=== PATIENT | female | born 1990 | race Caucasian/White ===

== ENCOUNTER 2016-10-10 17:48 | Emergency (ER) | payer BC ==
[~2016-10-10] VITALS: Ht 167.6 cm; Wt 123.0 kg
[2016-10-10 18:04] VITALS: TEMP 36.7; Ht 167.6 cm; Wt 123.0 kg
[2016-10-10] MEDS ORDERED: TRAMADOL HCL 50 MG TAB PO STA (18:24)
[2016-10-10] MEDS ORDERED: DIPH1TAB PO (18:24)
--- NOTE | 2016-10-10 18:30 | DIAGNOSTIC IMAGING REPORT ---
LEFT HAND MIN 3 VIEWS ROUTINE CLINICAL HISTORY: L Middle finger pain pain COMPARISON: None. DISCUSSION: The bones and joint spaces appear intact. There is no evidence of fracture, dislocation or bony disease. There is no evidence for soft tissue swelling. IMPRESSION: Negative study. Electronically signed by: Dank Sheets M.D. 10/10/2016 6:29 PM Dictated Date/Time: 10/10/2016 6:28 PM
[2016-10-10] MEDS ORDERED: TRAM-10 PO (18:50)
[2016-10-10 19:07] VITALS: BP 129/89; PULSE 92; O2SAT 99
--- NOTE | 2016-10-13 07:24 | EMERGENCY ROOM VISIT NOTE ---
ED Visit Note First contact with patient: 18:10 Chief Complaint: Left middle finger pain. History of Present Illness: Ms. Loya is a 26-year-old white female who ambulates into the ED accompanied by female friend complaining of pain over the DIP and distal flange of the left middle finger. Patient reports 4 days ago she was walking into her house after walking her dog. She opened the door and stopped momentarily and the dog raced into the house before her while she was still holding the door. She reports there was a twisting motion which injured her left middle finger. Currently she describes her pain as a sharp and throbbing sensation. She rates her discomfort 9/10. The pain is nonradiating. Pain worsens with flexion and extension of the DIP joint and palpation. She has not identified any alleviating factors related to the pain. She has not taken any medications for pain prior to arrival at the hospital. Associated with her pain she does report she has a paresthesia-like sensation throughout the distal finger. She denies any associated soft tissue injuries, other finger pain, other hand pain, previous significant injuries, fractures or surgeries to the left middle finger. Review of Systems: As noted above in history of present illness. Past Medical History: Patient denies. Current Medications: Benadryl. Allergies to Medications: Penicillin. Social History: Patient is currently employed; she feels safe in her home environment; she admits to tobacco use. Physical Examination: Vital Signs: Date Time Temp Pulse Resp B/P Pulse Ox O2 Delivery O2 Flow Rate FiO2 10/10/16 19:07 92 18 129/89 99 10/10/16 18:04 36.7 95 18 154/87 100 GENERAL: 26-year-old female in moderate distress due to pain, nontoxic-appearing , afebrile and hemodynamically stable. NEUROLOGICAL: Awake, alert and oriented to person, place and time. Answering questions appropriately and following commands. Normal gait. Good hand eye coordination. No focal motor or sensory deficits. SKIN: Warm, dry and pink. No soft tissue trauma noted. LEFT HAND: No gross bony deformities. Middle Finger: Once again no bony deformities. No tenderness over the third metacarpal, MCP joint, PIP joint and proximal phalange. Full range of motion of the MCP and PIP joint. She has difficulty extending and flexing her DIP joint due to pain. I do not appreciate any bony tenderness or crepitus. He was able to distinguish light sensations through all dermatomes of the finger. Cap refill is brisk. ED Course: Patient is assessed as noted above. Patient was given ice and 50 mg of Ultram by mouth for pain. Left Hand X-Rays: Were read by myself and the radiologist showing no acute fractures or dislocations. No evidence of soft tissue swelling or foreign bodies. Patient was placed in a long finger splint. Patient is a findings and instructed on treatment plan; she lives understanding and agreement with this plan. Clinical Impression: Left middle finger pain. Decision-Making: Initially my differential diagnosis I considered fracture, dislocation, tendon injury, contusion and other causes. Disposition: Patient discharged home in stable condition by female friends; prior to departure she was reassessed and subjectively reported she was feeling much better Plan: Comfort measures were discussed including rest, splint use, ice and alternating a prescription of Ultram and acetaminophen every 3 hours. Patient was encouraged to follow-up with orthopedics better in 7-10 days. Patient was encouraged to return to the ED uncontrolled pain, uncontrolled swelling, worsening numbness/tingling of the fingers or any new/concerning symptoms.
== END 2016-10-10 19:08 | disposition home or self-care (01) ==
LOC: C.EDB 17:49 → C.EDD 19:08
DX: M79.645 Pain in left finger(s) (principal); F17.200 Nicotine dependence, unspecified, uncomplicated

== ENCOUNTER 2017-05-18 18:53 | Emergency (ER) | payer BC, OTHER ==
[~2017-05-18 18:53] MED LIST: DIPH1TAB PO
[2017-05-18 19:05] VITALS: TEMP 36.9
[2017-05-18] MEDS ORDERED: KETOROLAC TROMETHAMINE 60 MG/2 ML VIAL IM STA (19:16)
--- NOTE | 2017-05-18 19:23 | EMERGENCY ROOM VISIT NOTE ---
ED Visit Note First contact with patient: 19:09 CHIEF COMPLAINT: Low back pain HISTORY OF PRESENT ILLNESS: This 27-year-old female patient presents to the emergency department, ambulatory, with her mother, complaining of pain in the low back which began 3 days ago at work. 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 She was seen at [facility] 2 days ago, one day after the incident, and was told that she has a pulled muscle. The patient states there were no x-rays or other imaging tests performed at that time. She was discharged on prednisone and Flexeril. She has been taking the prednisone as prescribed, but does not report any relief of her symptoms. The patient has not been taking any pain medication. The pain is constant and worse with movement. The patient notes the pain as "off the charts" and a 10/10. The patient has taken only prednisone and Flexeril without relief of the pain. The patient denies any loss of control of their bowel or bladder functions. There has been no leg numbness or weakness, and no change in sensation. No nausea or vomiting or abdominal pain. No chest pain or shortness of breath. The patient has not had prior back injuries. No dysuria or increased urinary frequency. REVIEW OF SYSTEMS: A 10 system review of systems was performed with positives and pertinent negatives listed in the history of present illness. All other systems were reviewed and are negative. ALLERGIES: Penicillin MEDICATIONS: Prednisone, Flexeril PMH: None SOCIAL HISTORY: The patient lives locally with family. She denies drug or alcohol use. She does admit to smoking 1 pack of cigarettes per day. PHYSICAL EXAM: VITALS: Vitals are noted on the nurse's note and reviewed by myself. Vital signs stable. GENERAL: This is a 27-year-old, obese white female, in no acute distress, nondiaphoretic, well-developed well-nourished. SKIN: The skin was without rashes, erythema, edema, or bruising. Capillary refill less than 2 seconds. NECK: Supple without nuchal rigidity. No cervical spine tenderness. No paraspinous muscle tenderness. HEART: Regular rate and rhythm without murmurs gallops or rubs. LUNGS: Clear to auscultation bilaterally without wheezes, rales or rhonchi. ABDOMEN: Positive bowel sounds x 4. Normal tympanic percussion. Soft, nontender, without masses or organomegaly. Perez sign negative. MUSCULOSKELETAL: No muscle atrophy, erythema, or edema noted of the back. There is no tenderness over the lumbar spinous processes. There is severe tenderness over the paraspinous muscles on the left. There is no tenderness over the thoracic spine or paraspinous muscles. There are muscle spasms present. The patient is slow to move around with maximum tenderness with positional changes. Negative straight leg raise test bilaterally. NEURO: Patient was alert and oriented to person place and time. Normal sensation to light and sharp touch. Deep tendon reflexes 2+ in the lower extremities. Dorsalis pedis pulse 2+ bilaterally. Strength 5/5 and equal in the bilateral lower extremities. RADIOLOGY: X-Ray L spine: LUMBAR SPINE 5 VIEWS CLINICAL HISTORY: Low back pain. FINDINGS: 5 views of the lumbar spine are obtained. No prior studies are available for comparison at the time of dictation. The skeletal structures are well mineralized. There is no radiographic evidence of fracture or malalignment. Vertebral body height and alignment are maintained. The transverse and spinous processes are intact. There is no evidence of spondylolysis. The intervertebral disc spaces are well-maintained. The visualized bony pelvis appears intact. A bone island is incidentally noted in the right femoral head. There is a nonobstructed abdominal bowel gas pattern. IMPRESSION: Unremarkable radiographic evaluation of the lumbosacral spine. Electronically signed by: Kalyan Kang M.D. 05/18/2017 8:14 PM Dictated Date/Time: 05/18/2017 8:13 PM EMERGENCY DEPARTMENT COURSE: The patient was seen and evaluated as above. She was given 60 mg Toradol IM and noted significant improvement in her symptoms. I discussed the results of the x-ray with the patient, and encouraged close follow-up with her Workmen's [employer]. providers. I did offer the patient another course of prednisone with a higher dose, but she declines in favor of naproxen instead. The patient was given a prescription for naproxen to the pharmacy and advised to take her muscle relaxer she was given from urgent care. Discharge instructions were reviewed and the patient was discharged home in good condition. DIFFERENTIAL DIAGNOSIS: Lumbar strain, fracture, cauda equina syndrome, disc protrusion or herniation, malignancy, and others DIAGNOSIS: Lumbar strain Current/Historical Medications Scheduled Prednisone (Prednisone), 10 MG PO taper ud Scheduled PRN Cyclobenzaprine Hcl (Flexeril), 10 MG PO TID PRN for Muscle Spasms Allergies Coded Allergies: Penicillins (Unverified Allergy, Severe, HIVES, 10/10/16) Vital Signs Date Time Temp Pulse Resp B/P (MAP) Pulse Ox O2 Delivery O2 Flow Rate FiO2 05/18/17 20:48 76 18 122/71 97 05/18/17 20:38 76 18 122/71 97 Room Air 05/18/17 19:05 36.9 89 18 140/78 98 Room Air Medications Administered Medications (Trade) Dose Ordered Sig/José Route Start Time Stop Time Status Last Admin Dose Admin Ketorolac Tromethamine (Toradol Inj) 60 mg NOW STAT IM 05/18/17 19:16 05/18/17 19:17 DC 05/18/17 19:29 60 MG Departure Information Impression Primary Impression: Strain of lumbar region Dispostion Home / Self-Care Condition GOOD Referrals No Doctor, Assigned (PCP) Patient Instructions ED Back Spasm No Trauma Td, ED Low Back Pain Injury, [facility] Additional Instructions You have been treated in the Emergency Department for Back Pain. You have been prescribed Flexeril (cyclobenzaprine) by the urgent care. You may use this medication up to 3 times daily. Do NOT exceed 30 mg (6 tabs) per day. Take your first dose at bedtime as it can make you drowsy. Always take all medications as prescribed. For pain control, you can use the following [id number] medicines (if >12 yo): Naproxen may be used for fever or pain. Use 500mg every 12 hours as needed. Take with food. Avoid using more than 1000mg in a 24 hour period. Do not use 1000mg per day for more than three consecutive days without physician direction. Prolonged inappropriate use can lead to stomach upset or ulcers. (AND/OR) Acetaminophen(Tylenol) may be used for fever or pain. Use 1000mg every six hours as needed. Avoid using more than 3000mg in a 24 hour period. If this is an acute injury, ice can be applied to the area of pain for the first 3 days to help decrease pain and inflammation. After the first 3 days, a heating pad can be used over the area for continued soothing relief. You should schedule a follow-up appointment in 2-3 days with your Primary Care Provider for further evaluation and treatment of your back pain. Return to the Emergency Department if your current symptoms worsen despite treatment course outlined above, or if you develop any of the following symptoms : intractable pain despite aforementioned treatment course, loss of control of your bowel or bladder, numbness or tingling in your groin, or development of a fever. Work Instructions Return To Work: 5 days Problem Qualifiers Primary Impression: Strain of lumbar region Encounter type: initial encounter Qualified Codes: S39.012A - Strain of muscle, fascia and tendon of lower back, initial encounter
--- NOTE | 2017-05-18 20:15 | DIAGNOSTIC IMAGING REPORT ---
LUMBAR SPINE 5 VIEWS CLINICAL HISTORY: Low back pain. FINDINGS: 5 views of the lumbar spine are obtained. No prior studies are available for comparison at the time of dictation. The skeletal structures are well mineralized. There is no radiographic evidence of fracture or malalignment. Vertebral body height and alignment are maintained. The transverse and spinous processes are intact. There is no evidence of spondylolysis. The intervertebral disc spaces are well-maintained. The visualized bony pelvis appears intact. A bone island is incidentally noted in the right femoral head. There is a nonobstructed abdominal bowel gas pattern. IMPRESSION: Unremarkable radiographic evaluation of the lumbosacral spine. Electronically signed by: Kalyan Kang M.D. 05/18/2017 8:14 PM Dictated Date/Time: 05/18/2017 8:13 PM
[2017-05-18] MEDS ORDERED: NAPR-1169 PO (20:27)
[2017-05-18] MEDS ORDERED: CYCL10TA6 PO (20:32)
[2017-05-18] MEDS ORDERED: PRED10TA PO (20:32)
[2017-05-18 20:48] VITALS: BP 122/71; PULSE 76; O2SAT 97
== END 2017-05-18 20:48 | disposition home or self-care (01) ==
LOC: C.EDB 18:57 → C.EDD 20:48
DX: S39.012A Strain of muscle, fascia and tendon of lower back, initial encounter (principal); X58.XXXA Exposure to other specified factors, initial encounter

== ENCOUNTER 2018-10-21 09:05 | Inpatient (IN) ==
[2018-10-21] MEDS ORDERED: LACTATED RINGER'S 1,000 ML IV PRN ×2 (10:20→16:56)
[2018-10-21] MEDS ORDERED: OXYTOCIN 30 UNITS/500 ML BAG IV PRN (10:20)
[2018-10-21 10:55] LABS: Hematocrit (blood only) 31.1 % (37-47); Hemoglobin 10.6 g/dL (12.0-16.0); Mean Corpuscular Volume 88.4 fL (80-100); Mean Platelet Volume 9.9 fL (7.4-10.4); Platelet Count 185 K/uL (130-400); RDW Coefficient of Variation 14.4 % (11.5-14.5); RDW Standard Deviation 46.6 fL (36.4-46.3); Red Blood Count 3.52 M/uL (4.2-5.4); White Blood Count 10.97 K/uL (4.8-10.8)
[2018-10-21 10:57] LABS: Mean Corpuscular Hgb Conc 34.1 g/dL (32-36)
[2018-10-21] MEDS ORDERED: DINOPROSTONE 10 MG INSERT PV ONE (11:00)
--- NOTE | 2018-10-21 11:19 | Obstetrical Progress Note ---
Date of Service October 21, 2018 Subjective Admit Note 28 F P0000 at 39.4 weeks admitted for induction of labor for Class 3 obesity. GBS is negative. FHT Cat 1. Cervix finger tip/50/-3/posterior/firm/intact. Cervidil 10 mg placed vaginally. EFW 8.5 lbs. Physical Exam Vital Signs (Past 24 Hours): Last Vital Signs Pulse 93 H 10/21/18 10:54 BP 134/73 10/21/18 10:54
[2018-10-21] MEDS ORDERED: fentaNYL 2MCG/ML ROPIV 1.25MG/ML 100 ML BAG EPI PRN (16:56)
[2018-10-21] MEDS ORDERED: NALOXONE HCL 0.4 MG/1 ML VIAL/CARP IV PRN (16:56)
[2018-10-21] MEDS ORDERED: NALBUPHINE HCL INJ 10 MG/ML AMP IV PRN (16:56)
[2018-10-21] MEDS ORDERED: DiphenhydrAMINE HCL 50 MG/ML VIAL IV PRN (16:56)
[2018-10-21] MEDS ORDERED: ePHEDrine sulfate 50 MG/ML AMP IV PRN (16:56)
[2018-10-21] MEDS ORDERED: NALOXONE HCL 1 MG in SODIUM CHLORIDE 0.9% 1000ML 1,000 ML IV PRN (16:56)
[2018-10-21] MEDS ORDERED: ONDANSETRON INJ 2 MG/ML 2 ML VIAL IV PRN (16:56)
[2018-10-22] MEDS ORDERED: miSOPROStol 50 MCG TAB PO STA (01:01)
[2018-10-22] MEDS ORDERED: DINOPROSTONE 10 MG INSERT PV ONE (07:44)
--- NOTE | 2018-10-22 07:47 | Obstetrical Progress Note ---
Date of Service October 22, 2018 Subjective Patient is seen and examined She was admitted yesterday by Dr. Newberry for IOL at term for class 3 obesity She received 1 Cervidil and 1 dose of PO Cytotec No ctxs/ LOF/VB +FM Reviewed her records GBS negative Anemic on iron Quit smoking 3 weeks ago No h/o STD's, no HSV VSS Afebrile FHR 130's reactive [place] no ctxs VE; 2/ 30%/ -3, posterior Plan to continue with cervical ripening/ Cervidil Physical Exam Vital Signs (Past 24 Hours): Last Vital Signs Temp 36.8 C 10/22/18 06:58 Pulse 90 10/22/18 06:58 Resp 20 10/22/18 06:58 BP 128/76 10/22/18 06:58
--- NOTE | 2018-10-22 08:36 | Obstetrical Progress Note ---
Date of Service October 22, 2018 Subjective Cervidil is placed Physical Exam Vital Signs (Past 24 Hours): Last Vital Signs Temp 36.8 C 10/22/18 06:58 Pulse 90 10/22/18 06:58 Resp 20 10/22/18 06:58 BP 128/76 10/22/18 06:58
[2018-10-22] MEDS ORDERED: BUTORPHANOL TARTRATE 1 MG/ML VIAL IV PRN (09:15)
--- NOTE | 2018-10-22 15:58 | Obstetrical Progress Note ---
Date of Service October 22, 2018 Subjective Patient is reevaluated She feels more pain and desires epidural She saw small amount of blood in her pad VSS Afbrile FHR categ I Tovo ctxs q2-4 min VE; Most of the string was out, cervidil in lower vagina, cervix 3-4 cm/ 70%/ - 2, bulging bag Continue to monitor Epidural for pain Physical Exam Vital Signs (Past 24 Hours): Last Vital Signs Temp 36.8 C 10/22/18 14:43 Pulse 83 10/22/18 14:43 Resp 18 10/22/18 14:43 BP 133/76 10/22/18 14:43
[2018-10-22] MEDS: LACTATED RINGER'S 1,000 ML IV SCH ×2 (16:01→17:01)
[2018-10-22] MEDS ORDERED: ePHEDrine sulfate 50 MG/ML AMP ONE (16:03)
[2018-10-22] MEDS ORDERED: fentaNYL citrate 100 MCG/2 ML VIAL ONE (16:03)
[2018-10-22] MEDS ORDERED: BUPIVACAINE 0.25% 30 ML VIAL ONE (16:03)
[2018-10-22] MEDS ORDERED: fentaNYL 2MCG/ML ROPIV 1.25MG/ML 100 ML BAG EPI ONE (16:04)
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
[2018-10-22] MEDS ORDERED: fentaNYL 2MCG/ML ROPIV 1.25MG/ML 100 ML BAG EPI PRN (17:00)
[2018-10-22] MEDS ORDERED: LACTATED RINGER'S 1,000 ML IV PRN ×2 (17:00→17:55)
[2018-10-22] MEDS ORDERED: NALBUPHINE HCL INJ 10 MG/ML AMP IV PRN (17:00)
[2018-10-22] MEDS ORDERED: NALOXONE HCL 1 MG in SODIUM CHLORIDE 0.9% 1000ML 1,000 ML IV PRN (17:00)
[2018-10-22] MEDS ORDERED: ePHEDrine sulfate 50 MG/ML AMP IV PRN (17:00)
[2018-10-22] MEDS ORDERED: DiphenhydrAMINE HCL 50 MG/ML VIAL IV PRN (17:00)
[2018-10-22] MEDS ORDERED: NALOXONE HCL 0.4 MG/1 ML VIAL/CARP IV PRN (17:00)
[2018-10-22] MEDS ORDERED: ONDANSETRON INJ 2 MG/ML 2 ML VIAL IV PRN (17:00)
--- NOTE | 2018-10-22 17:35 | Obstetrical Progress Note ---
Date of Service October 22, 2018 Subjective Patient is comfortable now, received epidural VE; 4/ 70%/ -2, AROM, clear fluid, FSE and IUPC are placed FHR 150's categ I Continue to monitor Physical Exam Vital Signs (Past 24 Hours): Last Vital Signs Temp 36.9 C 10/22/18 17:08 Pulse 104 H 10/22/18 17:30 Resp 20 10/22/18 17:16 BP 134/68 10/22/18 17:22 Pulse Ox 97 10/22/18 17:30
[2018-10-22] MEDS ORDERED: OXYTOCIN 30 UNITS/500 ML BAG IV PRN ×2 (17:55→22:15)
[2018-10-22] MEDS ORDERED: CEFAZOLIN 3000MG/72.5 ML BAG IV SCH (22:00)
[2018-10-22] MEDS ORDERED: DIPHTHERIA/TETANUS/PERTUSSIS 0.5 ML SYR/VIAL IM ONE (22:15)
[2018-10-22] MEDS ORDERED: BENZOCAINE 20% AER SPR 82.5 GM CAN EXT PRN (22:15)
[2018-10-22] MEDS ORDERED: OXYCODONE/ACETAMINOPHEN 5mg/325mg TAB PO PRN (22:15)
[2018-10-22] MEDS ORDERED: SUPERCREAM 0.870% 15 GM JAR EXT PRN (22:15)
[2018-10-22] MEDS ORDERED: HYDROCORTISONE ACETATE 25 MG SUPP PR PRN (22:15)
[2018-10-22] MEDS ORDERED: LACTATED RINGER'S 1,000 ML IV SCH (22:15)
[2018-10-22] MEDS ORDERED: BISACODYL 10 MG SUPP PR PRN (22:15)
[2018-10-22] MEDS ORDERED: ACETAMINOPHEN 325 MG TAB PO PRN (22:15)
[2018-10-23] MEDS: IBUPROFEN 600 MG TAB PO PRN ×3 (01:21→18:56)
--- NOTE | 2018-10-23 03:39 | Delivery Summary ---
DATE OF OPERATION: 10/22/2018 TIME OF DELIVERY OF BABY: 2126. TIME OF DELIVERY OF PLACENTA: 2149. DETAILS OF DELIVERY: The patient was found to be fully dilated and desired to push. She pushed for about 27 minutes and delivered the head without difficulty. There was a nuchal cord around the neck x1 which was reduced and baby's shoulders were delivered with the same push and then baby was handed off to the mother where mouth and nose were suctioned. Cord was clamped x2 and cut. It was a 2-vessel cord. Cord blood was obtained. Then vagina and perineum were checked for lacerations. There was a second-degree perineal laceration at the posterior fourchette. It was confirmed to be second degree by rectal exam. Good sphincter tone was noted. The gloves were changed. The perineal body muscles around the sphincter were reinforced with [id number] stitches x2 and then the rest of the vaginal mucosa and skin were closed with 2-0 Vicryl in a running fashion. Excellent hemostasis was achieved. The placenta was found to be in the vagina and delivered spontaneous as intact and complete. Uterus was explored, found to be empty. Lower segment was cleared of all clots and debris. Fundus was firm. EBL was 300 mL and the vagina was checked again for lacerations. There was a second-degree left lower vaginal laceration close to the left labia, it was repaired with 3-0 Vicryl in a running fashion, labia with 3-0 Vixryl on SH needle in a running fashion. There was oozing from the repair and then 2 more sutures were placed and then Austyn powder was applied over this laceration and then it was packed with one sponge over the repair, the sponge to be removed in 2 hours. Rectal exam was done, good sphincter tone was noted, no sutures were felt, and procedure was ended. Mom and baby tolerated the procedure well. Sponge, lap, needle count was correct x2. Baby was a viable male infant, Apgars 8/8, weight was 3498 gr. No complications happened and I was present during the whole procedure. The patient was given 3 grams of cefazolin during repair. PS: the sponge was removed from vagina 2 hours after repair. I attest to the content of the Intraoperative Record and any orders documented therein. Any exceptions are noted below. MTDD
[2018-10-23 07:04] LABS: Hematocrit (blood only) 26.3 % (37-47); Hemoglobin 8.8 g/dL (12.0-16.0); Mean Corpuscular Hgb Conc 33.5 g/dL (32-36); Mean Corpuscular Volume 88.6 fL (80-100); Mean Platelet Volume 10.3 fL (7.4-10.4); Platelet Count 184 K/uL (130-400); RDW Coefficient of Variation 14.6 % (11.5-14.5); Red Blood Count 2.97 M/uL (4.2-5.4); White Blood Count 16.57 K/uL (4.8-10.8)
--- NOTE | 2018-10-23 07:50 | Anesthesia Procedure Note ---
Date of Service October 23, 2018 Anesthesia Post Epidural Note Vital Signs Vital Signs: Temp Pulse Resp BP Pulse Ox 36.8 C 106 H 20 142/94 H 98 10/23/18 03:30 10/23/18 03:30 10/23/18 03:30 10/23/18 03:30 10/23/18 03:30 Pain Intensity Bilateral Abdomen: Pain Intensity: 4 Notes Mental Status: alert / awake / arousable and participated in evaluation Nausea / Vomiting: adequately controlled Pain: adequately controlled Airway Patency, RR, SpO2: stable & adequate BP & HR: stable & adequate Hydration State: stable & adequate Neuraxial Anesthesia: was administered and sensory block is resolving Anesthetic Complications: no major complications apparent and Pt Satisfied with anesthetic care Epidural: Removed without complications and With tip intact
[2018-10-23] MEDS ORDERED: FERROUS SULFATE 325 MG TAB PO SCH (09:00)
[2018-10-23] MEDS ORDERED: PRENATAL VITAMIN 1 TAB PO SCH (09:00)
[2018-10-23] MEDS: DOCUSATE SODIUM 100 MG CAP PO SCH (19:50)
[2018-10-23] MEDS ORDERED: BISACODYL 5 MG TABEC PO SCH (20:00)
[2018-10-24 07:20] LABS: Hematocrit (blood only) 23.9 % (37-47); Hemoglobin 8.1 g/dL (12.0-16.0)
[2018-10-24] MEDS: IBUPROFEN 600 MG TAB PO PRN (07:20)
[2018-10-24] MEDS: DOCUSATE SODIUM 100 MG CAP PO SCH (07:43)
--- NOTE | 2018-10-24 07:54 | Obstetrical Progress Note ---
Date of Service October 24, 2018 Subjective Patient is seen and examined. She feels well, no complaints. Ambulating without dizziness Voiding without difficulty Tolerating regular diet with out N&V Bleeding is minimal No fever/ chills/ CP/ SOB/ N&V/ Leg pain Breast feeding without problems Vital Signs Temp Pulse Resp BP 10/24/18 00:20 36.7 C 109 H 18 140/86 10/23/18 20:00 36.7 C 108 H 18 136/82 10/24/18 Range/Units 06:28 Hgb 8.1 L (12.0-16.0) g/dL Hct 23.9 L (37-47) % Vital Signs Temp Pulse Resp BP Pulse Ox 10/24/18 00:20 36.7 C 109 H 18 140/86 10/23/18 20:00 36.7 C 108 H 18 136/82 10/23/18 16:00 36.5 C 108 H 20 135/83 10/23/18 11:35 36.8 C 103 H 20 138/83 98 PE: General: Alert, orientedx3, NAD Abd: soft, NT, fundus firm, below Umbilicus Perineum intact, Lochia rubra minimal Ext; NT, no edema AP: 28 yo s/p , ppd# 2 VSS Afebrile doing well Anemic, asymptomatic Repeat H&H at noon Iron bid Continue routine care All questions were answered D/C home after labs Physical Exam Vital Signs (Past 24 Hours): Last Vital Signs Temp 36.7 C 10/24/18 00:20 Pulse 109 H 10/24/18 00:20 Resp 18 10/24/18 00:20 BP 140/86 10/24/18 00:20 Pulse Ox 98 10/23/18 11:35
[2018-10-24] MEDS ORDERED: FERROUS SULFATE 325 MG TAB PO SCH (08:00)
[2018-10-24 12:05] LABS: Hematocrit (blood only) 24.8 % (37-47); Hemoglobin 8.2 g/dL (12.0-16.0)
== END 2018-10-24 16:30 | disposition home health service (06) | DRG 806 ==
LOC: 4S1 10:15 → 4N 10-23 01:10